=== PATIENT | female | born 1960 | race Caucasian/White ===

== ENCOUNTER 2017-01-07 16:36 | Inpatient (IN) | payer MEDICARE ==
--- NOTE | ~2017-01-07 | DS ---
Discharge Summary [id number] [place]. [address] NAME: RADHA LAWLER : 64 STATUS : DIS IN PAT#: [id number] AGE: 56 ADM/REG DATE : 01/07/17 MR#: [id number] REPORT SERV DATE: 01/14/17 DICTATED BY: JAMES VALENCIA DATE: 01/13/17 REPORT STATUS : Draft TRANSCRIBED BY: MODL DATE: 01/13/17 ADMISSION DATE: 01/07/2017 DISCHARGE DATE: 01/13/2017 PROCEDURES DONE: 1. 01/07/2017, chest x-ray PA and lateral: Lingular pneumonia. 2. 01/10/2017, chest x-ray: Persistent lingular pneumonia, now with bilateral pleural effusion. 3. 01/13/2017, chest x-ray PA and lateral: Stable sternotomy with prosthetic aortic valve. Stable cholecystectomy. Previously described pneumonia has improved. REASON FOR ADMISSION: Nonproductive cough. HISTORY OF HOSPITAL STAY: A 56-year-old white female with past medical history of aortic mechanical valve, on Coumadin; rheumatoid arthritis, on Orencia and methotrexate, presenting with nonproductive cough. The patient has been having two to three weeks of nonproductive cough. Unfortunately, the patient lives with family members with sick contacts. In addition, the patient has been taking Orencia and methotrexate, which depressed her immune system. Initial workup shows a chest x-ray on 01/07/2017 with a lingular pneumonia. The patient was started on Rocephin and Zithromax. The patient also had Mucomyst with her breathing treatments, which significantly improved her pneumonia. She was able to cough up initially green to brownish sputum, which has eventually cleared to yellow to clear sputum production. More importantly, the patient is willing to continue her antibiotics at home. The patient has been advised to minimize sick contact due to her immune suppression from rheumatoid arthritis medication. In addition, the patient will follow up with her pest control service sales agent to determine what other RA medications she can take that are less immunosuppressive. DISPOSITION: The patient is feeling fine, no complaints. ACTIVITY: As tolerated. DIET: Diabetic. INSTRUCTIONS UPON DISCHARGE: 1. The patient will follow up with her pest control service sales agent within one to two weeks' time. 2. The patient will follow up with primary care physician within one to two weeks' time. MEDICATION UPON DISCHARGE: 1. Cefdinir 300 mg p.o. b.i.d., dispensed 20. 2. Florastor 250 mg p.o. b.i.d., dispensed 20. 3. Aspirin 162 mg p.o. daily. 4. Lipitor 20 mg p.o. q.h.s. 5. Coreg 12.5 mg p.o. b.i.d. 6. Lexapro 20 mg p.o. q.h.s. 7. Estradiol 2 mg p.o. daily. Discharge Summary [address] [address] NAME: RADHA LAWLER : 64 STATUS : DIS IN PAT#: [id number] AGE: 56 ADM/REG DATE : 01/07/17 MR#: [id number] REPORT SERV DATE: 01/14/17 DICTATED BY: JAMES VALENCIA DATE: 01/13/17 REPORT STATUS : Draft TRANSCRIBED BY: LIDIA DATE: 01/13/17 8. TriCor 145 mg p.o. q.h.s. 9. Gabapentin 300 mg p.o. t.i.d. 10.Toujeo SoloStar 80 units subcutaneously q.h.s. 11.Meclizine 25 mg p.o. daily. 12.Methotrexate 0.5 mL subcutaneously, 25 mg/mL q.7 days. 13.Singulair 10 mg p.o. q.h.s. 14.Coumadin 4 mg Saturday, , Saturday, Saturday, Saturday. 15.Coumadin 2 mg Saturday and Saturday. 16.Glucophage 1000 mg p.o. b.i.d. 17.Symbicort 160/4.5 two puffs b.i.d. 18.Alprazolam 0.5 mg p.o. t.i.d. p.r.n. 19.Lasix 40 mg p.o. daily. 20.Flonase one spray each nostril daily. 21.Orencia one dose IV every 30 days. 22.Ventolin two puffs q.4 hours p.r.n. DIAGNOSES UPON DISCHARGE: 1. Shortness of breath with left lower lobe pneumonia. 2. Left lower lobe pneumonia. 3. Diabetes type 2. 4. Hyperlipidemia. 5. Hypertension. 6. Rheumatoid arthritis, on methotrexate and Orencia. 7. Coronary artery disease status post CABG. 8. Aortic valve replacement, on Coumadin. MAGDIEL/LIDIA James Valencia MD / [id number] CC: MD Maxine Eddy M.D.
--- NOTE | ~2017-01-07 | HP ---
History And Physical [address] [place]. [address] NAME: RADHA LAWLER : 64 STATUS : [facility] [id number] AGE: 56 ADM/REG DATE : 01/07/17 MR#: [id number] REPORT SERV DATE: 01/08/17 DICTATED BY: KAPIL JIMENES DATE: 01/07/17 REPORT STATUS : Draft TRANSCRIBED BY: MODL DATE: 01/07/17 DATE OF ADMISSION: 01/07/2017 HISTORY OF PRESENT ILLNESS: This is a 56-year-old female, who comes in for fever. The patient has a history of mechanical valve, rheumatoid arthritis, diabetes, and was exposed to family members of some respiratory symptoms two to three weeks ago, but did not get sick until three days prior to admission and she started having some weakness, fatigue, myalgia, nonproductive cough. She then developed a fever to as high as 101 associated with chills and sweats when it breaks. This continued on the weekend and finally she got so weak. Her sister found her to be pale and went to the emergency room. In the ER, staff noted that she was not feeling well and did the workup. She was found to have a lingular pneumonia and we were called to admit this patient. The patient admits to having some nausea, but no vomiting. There is decrease in appetite, but she is still able to take her medications without any problems. She did admit of skipping the methotrexate last Saturday as she was feeling sick. The patient then noted some epistaxis today. There was no urinary or bowel changes. [place] dizzy, but no near syncopal or syncopal episode. No new rashes, and the rest of the 14-point review of systems negative except as above. PAST MEDICAL HISTORY: Dyslipidemia, hysterectomy, trigeminal neuralgia. She also has a cholecystectomy, CABG, bicuspid valve with aortic stenosis that was replaced a mechanical valve, depression and anxiety. ALLERGIES: SHE IS ALLERGIC TO QUINOLONES. MEDICATIONS: Include Orencia, albuterol, Xanax, aspirin, Lipitor, Symbicort, Coreg, Lexapro, Estrace, TriCor, Flonase, Lasix, Neurontin, Toujeo, meclizine, metformin, methotrexate, Singulair, and Coumadin. FAMILY HISTORY: Positive for CAD, lung cancer, PE. SOCIAL HISTORY: The patient does not smoke, drink, or use recreational drugs. PHYSICAL EXAMINATION: GENERAL: The patient is alert and oriented x3, not in cardiopulmonary distress. VITAL SIGNS: Blood pressure is 145/67, temperature of 98.6, pulse rate of 77, respirations 16, saturating 94% on room air. NECK: She has supple neck. No JVD or carotid bruits. No lymphadenopathy. HEENT: [place] conjunctivae. Anicteric sclerae. No pharyngeal erythema. LUNGS: Good air entry. Positive crackles at the left lower base, some egophony. The rest of the lungs are clear. HEART: There is regular rate and rhythm. No murmurs, but there is a loud S2. ABDOMEN: Positive bowel sounds. Soft, nontender. No masses. EXTREMITIES: Fair pulses. No edema. NEURO: Nonlocalizing. LABORATORY DATA: Reveals chemistry within acceptable limits except for glucose of 128 and History And Physical [address] [address] NAME: RADHA LAWLER : 64 STATUS : ADM IN [facility]#: [id number] AGE: 56 ADM/REG DATE : 01/07/17 MR#: [id number] REPORT SERV DATE: 01/08/17 DICTATED BY: KAPIL JIMENES DATE: 01/07/17 REPORT STATUS : Draft TRANSCRIBED BY: LIDIA DATE: 01/07/17 magnesium of 1.5. Troponins negative. Acetone is negative. Lactate is 1.4. White count is 8.6, H and H of 10.7 and 34.3. INR of 2.4. Chest x-ray shows the above findings. ASSESSMENT: 1. Left lung pneumonia. 2. History of asthma. 3. Rheumatoid arthritis. 4. Coronary artery disease with history of CABG. 5. History of aortic mechanical valve. 6. Hypomagnesemia. 7. Diabetes. 8. Hypertension. PLAN: The patient will be admitted to cardiac telemetry and started on community-acquired pneumonia regimen. She will be on fluids and we will hold the Lasix for now. She was hesitant on this, so it needs to be monitored carefully. We will have to continue the Coumadin and check INR as she has a mechanical valve. Replace magnesium. Check hemoglobin A1c and place her on subcu insulin protocol. This has been explained to her and she agreed and understood the plan. JERMAINE/LIDIA Kapil Jimenes M.D. / [id number] CC: TIANNA SAHA M.D.
[2017-01-07 14:25] LABS: BASOPHILS 0.3 %; BASOPHILS ABSOLUTE 0.03 10/3/uL (0.0-0.16); EOSINOPHILS 0.2 %; EOSINOPHILS ABSOLUTE 0.02 10/3/uL (0.0-0.53); ER CBC TAT 0 Hrs 08 Mins; HEMATOCRIT 34.3 % (36.0-48.0); HEMOGLOBIN 10.7 g/dL (12.0-16.0); IMMATURE GRANULOCYTES 0.3 %; IMMATURE GRANULOCYTES ABSOLUTE 0.03 10/3/uL (0.0-0.11); LYMPHOCYTES 11.3 %; LYMPHOCYTES ABSOLUTE 0.97 10/3/uL (0.67-4.30); MANUAL DIFF NO %; MEAN CORPUS HGB CONC 31.2 g/dL (32.0-36.0); MEAN CORPUSCULAR HEMOGLOB 24.6 pg (26.0-34.0); MEAN CORPUSCULAR VOLUME 78.9 fL (80-100); MEAN PLATELET VOLUME 9.2 fL (9.2-13.0); MONOCYTES 6.6 %; MONOCYTES ABSOLUTE 0.57 10/3/uL (0.21-1.20); NEUTROPHILS 81.3 %; PLATELET COUNT 312 10/3/uL (150-400); RBC DISTRIBUTION WIDTH 15.8 % (12.0-16.0); RED CELL COUNT 4.35 10/6/uL (4.0-5.6); WHITE BLOOD CELLS 8.6 10/3/uL (4.5-10.5)
[2017-01-07 14:33] LABS: INTERNATIONAL NORMAL RATI 2.4 UNITS (-); PARTIAL THROMBO TIME 63.3 SEC (22.5-37.2); PROTIME (NOT ORD) 26.1 SEC (12.0-14.5)
[2017-01-07 14:43] LABS: CALCIUM, SERUM 8.9 MG/DL (8.5-10.4); CHEST PAIN PROFILE TAT 0 Hrs 26 Mins; CHLORIDE, SERUM 101 MMOL/L (96-112); CO2 (CARBON DIOXIDE) 28 MMOL/L (24-34); GFR AFRICAN AMERICAN 74 ML/MIN (>=60); GFR NON AFRICAN AMERICAN 64 ML/MIN (>=60); POTASSIUM, SERUM 4.2 MMOL/L (3.5-5.3); SODIUM, SERUM 136 MMOL/L (135-148); TROPONIN I <0.02 NG/ML (<0.05)
[2017-01-07 14:44] LABS: BUN (BLOOD UREA NITROGEN) 15 MG/DL (6-23); GLUCOSE, SERUM 128 MG/DL (60-99)
[2017-01-07 16:24] LABS: ACETONE NEG
[~2017-01-07 16:36] MED LIST: ACCURETIC1 TAB PO; ACTOS30 PO; GLUCOPHAGE1000 MG PO; LEVEMFLXPN SC; LEXAPRO20 PO; MCZ25 PO; NORV5 PO; P125 PO; P5 PO; SINGULAIR1 PO; SYMBICORT 160/41 INH INH; TRILIPIX135 MG PO; VYTORIN 10/80 T1 TAB PO; X5 PO; ZANTAC 75 PO
[2017-01-07] MEDS ORDERED: TOUJEO SC (16:42)
[2017-01-07] MEDS ORDERED: LEXAPRO20 PO (16:43)
[2017-01-07] MEDS ORDERED: NEUR300 PO (16:43)
[2017-01-07] MEDS ORDERED: GLUCOPHAGE1000 MG PO (16:43)
[2017-01-07] MEDS ORDERED: ESTRACE1 MG PO (16:45)
[2017-01-07 16:47] LABS: INFLUENZA A SCREEN NEGATIVE (NEGATIVE); INFLUENZA B SCREEN NEGATIVE (NEGATIVE)
[2017-01-07] MEDS ORDERED: X5 PO (16:52)
[2017-01-07] MEDS ORDERED: COREG12 PO (16:53)
[2017-01-07] MEDS ORDERED: TRICOR145 PO (16:53)
[2017-01-07] MEDS ORDERED: L40 PO (16:53)
[2017-01-07] MEDS ORDERED: COUMADIN4 MG PO (16:54)
[2017-01-07] MEDS ORDERED: C2 PO (16:55)
[2017-01-07] MEDS ORDERED: LIPITOR20 PO (16:56)
[2017-01-07] MEDS ORDERED: SINGULAIR1 PO (16:56)
[2017-01-07 16:57] LABS: PROCALCITONIN 0.12 ng/mL (<0.5)
[2017-01-07] MEDS ORDERED: SYMBICORT 160/41 INH INH (16:59)
[2017-01-07] MEDS ORDERED: ASAB PO (17:02)
[2017-01-07] MEDS ORDERED: FLONASE NAS (17:02)
[2017-01-07] MEDS ORDERED: ORENCIA250 MG IV (17:15)
[2017-01-07] MEDS ORDERED: MTX50 SC (17:16)
[2017-01-07] MEDS ORDERED: MCZ25 PO (17:16)
[2017-01-07] MEDS ORDERED: VENTOLIN HFA INH (17:16)
[2017-01-07 20:23] LABS: ALBUMIN 3.3 G/DL (3.5-5.0); ALKALINE PHOSPHATASE 53 U/L (45-117); DIRECT BILIRUBIN 0.2 MG/DL (0.0-0.4); INDIRECT BILIRUBIN(NOT ORDER) 0.3 MG/DL (0.1-0.9); SGOT(AST) 50 U/L (5-40); SGPT(ALT) 29 U/L (5-65); TOTAL BILIRUBIN 0.5 MG/DL (0-1.2); TOTAL PROTEIN 7.5 G/DL (6.0-8.5)
[2017-01-08 05:27] LABS: BASOPHILS 0.7 %; BASOPHILS ABSOLUTE 0.05 10/3/uL (0.0-0.16); EOSINOPHILS 0 %; HEMOGLOBIN 9.3 g/dL (12.0-16.0); IMMATURE GRANULOCYTES 0.6 %; IMMATURE GRANULOCYTES ABSOLUTE 0.04 10/3/uL (0.0-0.11); LYMPHOCYTES 21.2 %; MEAN CORPUS HGB CONC 31.2 g/dL (32.0-36.0); MEAN CORPUSCULAR HEMOGLOB 24.4 pg (26.0-34.0); MEAN CORPUSCULAR VOLUME 78.2 fL (80-100); MEAN PLATELET VOLUME 9.1 fL (9.2-13.0); MONOCYTES 9.6 %; MONOCYTES ABSOLUTE 0.68 10/3/uL (0.21-1.20); NEUTROPHILS 67.9 %; NEUTROPHILS ABSOLUTE 4.81 10/3/uL (2.02-8.40); PLATELET COUNT 275 10/3/uL (150-400); RED CELL COUNT 3.81 10/6/uL (4.0-5.6); WHITE BLOOD CELLS 7.1 10/3/uL (4.5-10.5)
[2017-01-08 05:28] LABS: HEMATOCRIT 29.8 % (36.0-48.0); MANUAL DIFF NO %
[2017-01-08 05:35] LABS: INTERNATIONAL NORMAL RATI 2.3 UNITS (-); PROTIME (NOT ORD) 25.4 SEC (12.0-14.5)
[2017-01-08 05:37] LABS: BUN (BLOOD UREA NITROGEN) 15 MG/DL (6-23); CALCIUM, SERUM 8.5 MG/DL (8.5-10.4); CHLORIDE, SERUM 103 MMOL/L (96-112); CO2 (CARBON DIOXIDE) 25 MMOL/L (24-34); CREATININE 0.96 MG/DL (0.55-1.02); GFR AFRICAN AMERICAN 78 ML/MIN (>=60); GFR NON AFRICAN AMERICAN 67 ML/MIN (>=60); POTASSIUM, SERUM 3.8 MMOL/L (3.5-5.3); SODIUM, SERUM 137 MMOL/L (135-148)
[2017-01-08 05:39] LABS: GLUCOSE, SERUM 93 MG/DL (60-99)
[2017-01-09 03:52] LABS: BASOPHILS 0.7 %; BASOPHILS ABSOLUTE 0.05 10/3/uL (0.0-0.16); EOSINOPHILS ABSOLUTE 0.07 10/3/uL (0.0-0.53); HEMATOCRIT 29.7 % (36.0-48.0); HEMOGLOBIN 8.9 g/dL (12.0-16.0); IMMATURE GRANULOCYTES 0.6 %; IMMATURE GRANULOCYTES ABSOLUTE 0.04 10/3/uL (0.0-0.11); LYMPHOCYTES 25.4 %; LYMPHOCYTES ABSOLUTE 1.83 10/3/uL (0.67-4.30); MEAN CORPUSCULAR HEMOGLOB 24.2 pg (26.0-34.0); MEAN PLATELET VOLUME 9.2 fL (9.2-13.0); MONOCYTES 12.6 %; MONOCYTES ABSOLUTE 0.91 10/3/uL (0.21-1.20); NEUTROPHILS 59.7 %; NEUTROPHILS ABSOLUTE 4.31 10/3/uL (2.02-8.40); PLATELET COUNT 287 10/3/uL (150-400); RED CELL COUNT 3.68 10/6/uL (4.0-5.6); WHITE BLOOD CELLS 7.2 10/3/uL (4.5-10.5)
[2017-01-09 04:05] LABS: MANUAL DIFF NO %; MEAN CORPUSCULAR VOLUME 80.7 fL (80-100)
[2017-01-09 04:06] LABS: A/G RATIO 0.7 (0.7-1.9); ALBUMIN 2.7 G/DL (3.5-5.0); BUN (BLOOD UREA NITROGEN) 18 MG/DL (6-23); CALCIUM, SERUM 8.4 MG/DL (8.5-10.4); CHLORIDE, SERUM 103 MMOL/L (96-112); CREATININE 1.05 MG/DL (0.55-1.02); GFR AFRICAN AMERICAN 70 ML/MIN (>=60); GFR NON AFRICAN AMERICAN 60 ML/MIN (>=60); GLOBULIN 3.7 G/DL (2.5-4.1); INTERNATIONAL NORMAL RATI 2.5 UNITS (-); POTASSIUM, SERUM 4.5 MMOL/L (3.5-5.3); PROTIME (NOT ORD) 26.7 SEC (12.0-14.5); SGOT(AST) 35 U/L (5-40); SGPT(ALT) 19 U/L (5-65); SODIUM, SERUM 138 MMOL/L (135-148); TOTAL BILIRUBIN 0.2 MG/DL (0-1.2); TOTAL PROTEIN 6.4 G/DL (6.0-8.5)
[2017-01-09 04:07] LABS: ALKALINE PHOSPHATASE 42 U/L (45-117); CO2 (CARBON DIOXIDE) 30 MMOL/L (24-34); GLUCOSE, SERUM 133 MG/DL (60-99)
[2017-01-09 10:28] LABS: ASCORBIC ACID (UR NOT ORDER) NEG (NEG); BILIRUBIN, URINE NEGATIVE (NEG); KETONE, URINE NEGATIVE (NEG); LEUKOCYTE ESTERASE(NOT OR NEG (NEG); WBC (NOT ORDERED) (RFLEX) 2 (0-5)
[2017-01-10 04:39] LABS: BASOPHILS 0.5 %; BASOPHILS ABSOLUTE 0.04 10/3/uL (0.0-0.16); EOSINOPHILS 1.6 %; EOSINOPHILS ABSOLUTE 0.12 10/3/uL (0.0-0.53); HEMATOCRIT 28.4 % (36.0-48.0); HEMOGLOBIN 8.7 g/dL (12.0-16.0); IMMATURE GRANULOCYTES 0.8 %; IMMATURE GRANULOCYTES ABSOLUTE 0.06 10/3/uL (0.0-0.11); LYMPHOCYTES 26.7 %; LYMPHOCYTES ABSOLUTE 1.99 10/3/uL (0.67-4.30); MEAN CORPUS HGB CONC 30.6 g/dL (32.0-36.0); MEAN CORPUSCULAR HEMOGLOB 24.2 pg (26.0-34.0); MEAN CORPUSCULAR VOLUME 79.1 fL (80-100); MEAN PLATELET VOLUME 9.2 fL (9.2-13.0); MONOCYTES 11.9 %; MONOCYTES ABSOLUTE 0.89 10/3/uL (0.21-1.20); NEUTROPHILS 58.5 %; NEUTROPHILS ABSOLUTE 4.36 10/3/uL (2.02-8.40); PLATELET COUNT 289 10/3/uL (150-400); RED CELL COUNT 3.59 10/6/uL (4.0-5.6); WHITE BLOOD CELLS 7.5 10/3/uL (4.5-10.5)
[2017-01-10 04:40] LABS: MANUAL DIFF NO %
[2017-01-10 04:42] LABS: INTERNATIONAL NORMAL RATI 2.7 UNITS (-); PROTIME (NOT ORD) 28.5 SEC (12.0-14.5)
[2017-01-10 04:45] LABS: ALBUMIN 2.6 G/DL (3.5-5.0); BUN (BLOOD UREA NITROGEN) 18 MG/DL (6-23); CALCIUM, SERUM 8.3 MG/DL (8.5-10.4); CHLORIDE, SERUM 102 MMOL/L (96-112); CO2 (CARBON DIOXIDE) 27 MMOL/L (24-34); CREATININE 0.79 MG/DL (0.55-1.02); GFR AFRICAN AMERICAN 98 ML/MIN (>=60); GFR NON AFRICAN AMERICAN 85 ML/MIN (>=60); GLUCOSE, SERUM 135 MG/DL (60-99); PHOSPHORUS, SERUM 2.5 MG/DL (2.5-4.5); POTASSIUM, SERUM 4.5 MMOL/L (3.5-5.3); SODIUM, SERUM 137 MMOL/L (135-148)
[2017-01-11 06:49] LABS: BASOPHILS 0.9 %; BASOPHILS ABSOLUTE 0.06 10/3/uL (0.0-0.16); EOSINOPHILS 4.2 %; EOSINOPHILS ABSOLUTE 0.27 10/3/uL (0.0-0.53); HEMATOCRIT 27.3 % (36.0-48.0); HEMOGLOBIN 8.5 g/dL (12.0-16.0); IMMATURE GRANULOCYTES 1.1 %; IMMATURE GRANULOCYTES ABSOLUTE 0.07 10/3/uL (0.0-0.11); LYMPHOCYTES ABSOLUTE 1.75 10/3/uL (0.67-4.30); MEAN CORPUS HGB CONC 31.1 g/dL (32.0-36.0); MEAN CORPUSCULAR HEMOGLOB 24.6 pg (26.0-34.0); MEAN CORPUSCULAR VOLUME 78.9 fL (80-100); MEAN PLATELET VOLUME 8.7 fL (9.2-13.0); MONOCYTES 10.2 %; MONOCYTES ABSOLUTE 0.66 10/3/uL (0.21-1.20); NEUTROPHILS 56.6 %; NEUTROPHILS ABSOLUTE 3.66 10/3/uL (2.02-8.40); PLATELET COUNT 296 10/3/uL (150-400); RBC DISTRIBUTION WIDTH 16.1 % (12.0-16.0); RED CELL COUNT 3.46 10/6/uL (4.0-5.6); WHITE BLOOD CELLS 6.5 10/3/uL (4.5-10.5)
[2017-01-11 06:50] LABS: MANUAL DIFF NO %
[2017-01-11 06:58] LABS: INTERNATIONAL NORMAL RATI 3.6 UNITS (-)
[2017-01-11 07:09] LABS: A/G RATIO 0.7 (0.7-1.9); ALBUMIN 2.5 G/DL (3.5-5.0); BUN (BLOOD UREA NITROGEN) 18 MG/DL (6-23); CALCIUM, SERUM 8.7 MG/DL (8.5-10.4); CHLORIDE, SERUM 107 MMOL/L (96-112); CO2 (CARBON DIOXIDE) 29 MMOL/L (24-34); CREATININE 0.79 MG/DL (0.55-1.02); GFR AFRICAN AMERICAN 98 ML/MIN (>=60); GFR NON AFRICAN AMERICAN 85 ML/MIN (>=60); GLOBULIN 3.8 G/DL (2.5-4.1); GLUCOSE, SERUM 120 MG/DL (60-99); PHOSPHORUS, SERUM 2.8 MG/DL (2.5-4.5); POTASSIUM, SERUM 4.2 MMOL/L (3.5-5.3); SGOT(AST) 23 U/L (5-40); SGPT(ALT) 27 U/L (5-65); TOTAL BILIRUBIN 0.2 MG/DL (0-1.2); TOTAL PROTEIN 6.3 G/DL (6.0-8.5)
[2017-01-11 07:10] LABS: ALKALINE PHOSPHATASE 52 U/L (45-117); PROTIME (NOT ORD) 35.3 SEC (12.0-14.5); SODIUM, SERUM 144 MMOL/L (135-148)
[2017-01-12 04:34] LABS: BASOPHILS 0.6 %; BASOPHILS ABSOLUTE 0.05 10/3/uL (0.0-0.16); EOSINOPHILS 3.4 %; EOSINOPHILS ABSOLUTE 0.29 10/3/uL (0.0-0.53); HEMATOCRIT 27.3 % (36.0-48.0); HEMOGLOBIN 8.6 g/dL (12.0-16.0); IMMATURE GRANULOCYTES 1.2 %; LYMPHOCYTES 23.3 %; LYMPHOCYTES ABSOLUTE 1.96 10/3/uL (0.67-4.30); MEAN CORPUS HGB CONC 31.5 g/dL (32.0-36.0); MEAN CORPUSCULAR HEMOGLOB 24.9 pg (26.0-34.0); MEAN CORPUSCULAR VOLUME 79.1 fL (80-100); MEAN PLATELET VOLUME 8.9 fL (9.2-13.0); MONOCYTES 8.1 %; MONOCYTES ABSOLUTE 0.68 10/3/uL (0.21-1.20); NEUTROPHILS 63.4 %; NEUTROPHILS ABSOLUTE 5.33 10/3/uL (2.02-8.40); PLATELET COUNT 322 10/3/uL (150-400); RBC DISTRIBUTION WIDTH 16.1 % (12.0-16.0); RED CELL COUNT 3.45 10/6/uL (4.0-5.6); WHITE BLOOD CELLS 8.4 10/3/uL (4.5-10.5)
[2017-01-12 04:37] LABS: MANUAL DIFF NO %
[2017-01-12 04:41] LABS: INTERNATIONAL NORMAL RATI 3.1 UNITS (-); PROTIME (NOT ORD) 31.3 SEC (12.0-14.5)
[2017-01-12 04:50] LABS: ALBUMIN 2.8 G/DL (3.5-5.0); BUN (BLOOD UREA NITROGEN) 17 MG/DL (6-23); CALCIUM, SERUM 8.9 MG/DL (8.5-10.4); CHLORIDE, SERUM 104 MMOL/L (96-112); CO2 (CARBON DIOXIDE) 33 MMOL/L (24-34); CREATININE 0.88 MG/DL (0.55-1.02); GFR AFRICAN AMERICAN 86 ML/MIN (>=60); GFR NON AFRICAN AMERICAN 74 ML/MIN (>=60); GLUCOSE, SERUM 100 MG/DL (60-99); PHOSPHORUS, SERUM 3.4 MG/DL (2.5-4.5); POTASSIUM, SERUM 4.2 MMOL/L (3.5-5.3); SODIUM, SERUM 142 MMOL/L (135-148)
[2017-01-13 04:38] LABS: BASOPHILS 0.7 %; BASOPHILS ABSOLUTE 0.07 10/3/uL (0.0-0.16); EOSINOPHILS 3.3 %; EOSINOPHILS ABSOLUTE 0.34 10/3/uL (0.0-0.53); HEMATOCRIT 26.4 % (36.0-48.0); HEMOGLOBIN 8.1 g/dL (12.0-16.0); IMMATURE GRANULOCYTES 1.5 %; IMMATURE GRANULOCYTES ABSOLUTE 0.15 10/3/uL (0.0-0.11); LYMPHOCYTES 22.6 %; MEAN CORPUS HGB CONC 30.7 g/dL (32.0-36.0); MEAN CORPUSCULAR HEMOGLOB 24.3 pg (26.0-34.0); MONOCYTES 8.9 %; MONOCYTES ABSOLUTE 0.91 10/3/uL (0.21-1.20); PLATELET COUNT 364 10/3/uL (150-400); RBC DISTRIBUTION WIDTH 16.2 % (12.0-16.0); RED CELL COUNT 3.34 10/6/uL (4.0-5.6); WHITE BLOOD CELLS 10.2 10/3/uL (4.5-10.5)
[2017-01-13 04:39] LABS: MANUAL DIFF NO %
[2017-01-13 04:44] LABS: INTERNATIONAL NORMAL RATI 2.6 UNITS (-); PROTIME (NOT ORD) 27.9 SEC (12.0-14.5)
[2017-01-13 04:52] LABS: A/G RATIO 0.7 (0.7-1.9); ALBUMIN 2.7 G/DL (3.5-5.0); ALKALINE PHOSPHATASE 49 U/L (45-117); BUN (BLOOD UREA NITROGEN) 15 MG/DL (6-23); CALCIUM, SERUM 8.7 MG/DL (8.5-10.4); CHLORIDE, SERUM 107 MMOL/L (96-112); CREATININE 0.82 MG/DL (0.55-1.02); GFR AFRICAN AMERICAN 94 ML/MIN (>=60); GFR NON AFRICAN AMERICAN 81 ML/MIN (>=60); GLOBULIN 3.7 G/DL (2.5-4.1); GLUCOSE, SERUM 91 MG/DL (60-99); PHOSPHORUS, SERUM 3.3 MG/DL (2.5-4.5); POTASSIUM, SERUM 4.3 MMOL/L (3.5-5.3); SGOT(AST) 16 U/L (5-40); SGPT(ALT) 19 U/L (5-65); SODIUM, SERUM 142 MMOL/L (135-148); TOTAL BILIRUBIN 0.3 MG/DL (0-1.2); TOTAL PROTEIN 6.4 G/DL (6.0-8.5)
[2017-01-13 04:58] LABS: CO2 (CARBON DIOXIDE) 28 MMOL/L (24-34)
[2017-01-13] MEDS ORDERED: OMNICEF300 PO (11:14)
[2017-01-13] MEDS ORDERED: FLORASTOR250 MG PO (11:14)
== END 2017-01-13 14:07 | disposition home or self-care (01) | DRG 195 ==
LOC: ER 16:36 → 7NO 18:14
PROVIDERS: Hospitalist; Internal Medicine; Nurse Practitioner Family
DX: J18.9 Pneumonia, unspecified organism (principal); E83.42 Hypomagnesemia; M06.9 Rheumatoid arthritis, unspecified; I25.10 Atherosclerotic heart disease of native coronary artery without angina pectoris; E11.9 Type 2 diabetes mellitus without complications; E78.5 Hyperlipidemia, unspecified; R04.0 Epistaxis; F32.9 Major depressive disorder, single episode, unspecified; J45.909 Unspecified asthma, uncomplicated; Z95.2 Presence of prosthetic heart valve; Z79.899 Other long term (current) drug therapy; Z79.01 Long term (current) use of anticoagulants; Z95.1 Presence of aortocoronary bypass graft; Z90.49 Acquired absence of other specified parts of digestive tract; Z90.710 Acquired absence of both cervix and uterus; Z88.8 Allergy status to other drugs, medicaments and biological substances; Z79.84 Long term (current) use of oral hypoglycemic drugs
CPT/HCPCS: 71020; 80048; 80053; 80069; 80076; 81001; 82009; 82962; 83036; 83605; 83735; 84100; 84145; 84484; 85025; 85379; 85610; 85652; 85730; 87040; 87070; 87449; 87804; 87880; 93005; 94640; 96374; 99285; A9270-GY; J0456; J2405; J3475